=== PATIENT | female | born 1945 | race Two or more races ===

== ENCOUNTER → 2017-08-18 | Outpatient (CLI) | payer OTHER, MEDICAID ==
[~2017-08-18] MED LIST: NS 100 ML IV 100 ML IV ONE
[2017-08-18 09:09] LABS: CREATININE 0.91 mg/dL (0.55-1.02)
--- NOTE | 2017-08-18 13:25 | CT ---
CT OF THE ABDOMEN AND PELVIS WITH CONTRAST HISTORY: Epigastric pain Comparison: None Technique: Multiple axial images of the abdomen and pelvis were obtained from the lung bases to the pubic symphy sis follow the administration of IV contrast. Dose reduction techniques including Automated Exposure Control (AEC) and adjustment of mA and kV were utlized. Findings: The heart is normal in size. There is no pericardial effusion. Lung bases are clear without focal con solidation, pleural effusion or pneumothorax. Small hiatal hernia. Liver and spleen are normal in size, enhancement characteristics and contour. No focal lesions. The p ortal vein is patent. No ductal dilitation. Gallbladder is present. No calcified gallstones or gallbl adder wall thickening. The pancreas is unremarkable. Adrenal glands are normal. Kidneys enhance symme trically without hydronephrosis or nephrolithiasis. No bowel obstruction or inflammation. Normal appendix. No abnormal appearing mesenteric or retroperit hughes lymph nodes. No free fluid or fluid collections. The bladder is normal in appearance. Status post hysterectomy. No free fluid or abnormal pelvic lymph nodes. No aggressive osseous lesions. IMPRESSION: 1. Small hiatal hernia. Reported By:
== END | disposition home or self-care (01) | DRG 392 ==
LOC: RAD 08:38
PROVIDERS: ATTEND Internal Medicine
DX: R10.84 Generalized abdominal pain (principal); K44.9 Diaphragmatic hernia without obstruction or gangrene
CPT/HCPCS: 36415; 74177; 82565; 84520; A4222